=== PATIENT | female | born 1975 | race Caucasian/White ===

== ENCOUNTER 2024-01-17 07:35 | Outpatient (CLI) | payer OTHER, SELFPAY ==
--- NOTE | ~2024-01-17 | MR_ITS ---
MRI of the left hand CLINICAL HISTORY: Ulcerative finger, rheumatoid arthritis TECHNIQUE: Coronal T1-weighted and T2 fat-sat images, axial T1-weighted, T2 fat-sat, and T1-weighted images, and sagittal T1-weighted and T2 fat-sat images were performed. FINDINGS: No evidence for osteitis. Possible minimal marrow edema at the distal tuft of the third dis joce phalanx, nonspecific, likely reactive. Remaining bone marrow signals are unremarkable. Subtraction or fracture identified. Visualized joint spaces are intact, without erosive change or jose nt effusion. Flexor and extensor tendons are intact. No soft tissue mass or fluid flexion seen. There is nonspecif ic mild soft tissue edema at the distal aspect of the third digit. IMPRESSION: Mild nonspecific soft tissue edema at the distal aspect of the third digit. Minimal probable stress response/reactive marrow edema at the distal tuft of the third distal phalanx . No soft tissue mass, abscess, or osteomyelitis identified. No erosive arthropathy evident. Reviewed, dictated and finalized at [facility]. IMPRESSION: Mild nonspecific soft tissue edema at the distal aspect of the third digit. Minimal probable stress response/reactive marrow edema at the distal tuft of th e third distal phalanx. No soft tissue mass, abscess, or osteomyelitis identified. No erosive arthropathy evident.
== END 2024-01-17 07:36 | disposition home or self-care (01) ==
PROVIDERS: Visit Provider Internal Medicine
DX: I10 Essential (primary) hypertension (principal); M54.59 Other low back pain; R32 Unspecified urinary incontinence; H52.209 Unspecified astigmatism, unspecified eye; H52.4 Presbyopia; M06.9 Rheumatoid arthritis, unspecified; E78.5 Hyperlipidemia, unspecified; F41.9 Anxiety disorder, unspecified; D26.9 Other benign neoplasm of uterus, unspecified; K06.8 Other specified disorders of gingiva and edentulous alveolar ridge; F15.20 Other stimulant dependence, uncomplicated
CPT/HCPCS: 73218